=== PATIENT | female | born 1935 | race Caucasian/White ===

== ENCOUNTER 2017-11-30 16:43 | Inpatient (IN) | payer MEDICARE ==
[~2017-11-30] VITALS: Ht 152.4 cm; Wt 56.8 kg
--- NOTE | 2017-11-30 18:04 | PHYS DOC ---
Past History Past Medical History: CHF, Hypertension, Other (respiratory problem on home oxygen) Adult General Chief Complaint Chief Complaint: WEAKNESS/GENERALIZED HPI HPI 82-year-old female patient brought in by his from physician office for failure to thrive. Patient diagnosed with influenza B on November 01 at her home town in [place] and was admitted at Hospital. patient was not eating and drinking after her discharge from hospital since November 11 and was admitted at Hospital in November 17. Since Dr. Judge at this area brought her to hear on November and was seen by her primary care physician who recommended to admit at Hospital because of failure to thrive. Review of Systems Review of Systems Constitutional: Denies fever or chills, reports weakness [] Eyes: Denies change in visual acuity, redness, or eye pain [] HENT: Denies nasal congestion or sore throat [] Respiratory: Denies cough or shortness of breath [] Cardiovascular: No additional information not addressed in HPI [] GI: Denies abdominal pain, nausea, vomiting, bloody stools or diarrhea [] : Denies dysuria or hematuria [] Musculoskeletal: Denies back pain or joint pain [] Integument: Denies rash or skin lesions [] Neurologic: Denies headache, focal weakness or sensory changes [] Endocrine: Denies polyuria or polydipsia [] All other systems were reviewed and found to be within normal limits, except as documented in this note. Physical Exam Physical Exam Constitutional: Ill looking, alert and oriented HENT: Normocephalic, atraumatic, bilateral external ears normal, oropharynx dry , no oral exudates, nose normal. [] Eyes: PERRLA, EOMI, conjunctiva normal, no discharge. [] Neck: Normal range of motion, no tenderness, supple, no stridor. [] Cardiovascular:Heart rate regular rhythm, no murmur [] Lungs & Thorax: Bilateral breath sounds clear to auscultation [] Abdomen: Bowel sounds normal, soft, no tenderness, no masses, no pulsatile masses. [] Skin: Warm, dry, no erythema, no rash. [] Back: No tenderness, no CVA tenderness. [] Extremities: No tenderness, no cyanosis, no clubbing, ROM intact, no edema. [] Neurologic: Alert and oriented X 3, normal motor function, normal sensory function, no focal deficits noted. [] Psychologic: Affect normal, judgement normal, mood normal. [] EKG EKG [Cage interpreted by me. EKG at 1724 showed sinus rhythm at rate of 73. Prolonged WA interval, abnormal right superior axis deviation, right bundle branch block, poor R-wave progress in anteroseptal leads ] Radiology/Procedures Radiology/Procedures [] Course & Med Decision Making Course & Med Decision Making Pertinent Labs and Imaging studies are pending. Patient care transferred to Dr. Calvert at 1800 Patient signed out to me at 1800 shift change with failure to thrive, workup pending. Patient seen and examined, chart reviewed, and history primarily obtained from the patient's daughter who is at bedside. Patient was sent EMS from Dr. Horne's office for failure to thrive evaluation. Her daughter relays that she just brought the patient on November 28 to [facility] from [place]. Patient was diagnosed with influenza B on November 01 and prior to that diagnosis she lives at home with caregivers and ambulated using a walker. She was admitted to the hospital in [place] on November 01 and since her discharge on November 11 has not been able to tolerate anything solid by mouth or ambulate as before. She was in and out of the hospital and rehabilitation facilities since discharge until her daughter brought her to [place] by medical transport. Although the patient is ill- appearing in the emergency department she does deny any discomfort, dyspnea, or other complaint. 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), coronary artery disease, hypertension, hyperlipidemia, urinary incontinence (indwelling catheter 2 years ), hiatal hernia, chronic respiratory failure since pacemaker placement uses 3 L of O2 via nasal cannula Past surgical history: Mastectomy, rectal surgery, coronary stents, pacemaker, carpal tunnel release, pain pump (no use times one year) ED vitals: 98.7, 73, 22, 128/60, 98% on 3 L of O2 via nasal cannula The patient is pale and cachectic, very dry mucous membranes with scabbed lesions on her lips, coarse breath sounds bilaterally, stage I decubitus ulcer of the sacrum approximately 5 cm, no lower extremity edema, pale skin with poor turgor and bruising at the upper extremities consistent with chronic Coumadin anticoagulation EKG: Right bundle branch block 73 bpm no prior for comparison interpreted by me Chest AP: No effusions, right middle lobe infiltrate pacemaker interpreted by me Pertinent labs: White blood cells 17.3, hemoglobin 11.6, INR 2.4, potassium 2.7 , lactic acid 1.0, magnesium 1.7, troponin 0.077, BNP 1561, albumin 2.7, urinalysis pending I discussed findings with the patient and her daughter and the need for inpatient treatment. After thorough discussion the patient and her daughter indicate that they would like primarily symptomatic care no surgical intervention. The patient and her daughter are agreeable to inpatient admission , they state that in the past an air mattress has been required 2124: Patient discussed with control tower operator hospitalist Dr. Buitrago, he accepts inpatient ICU admission. Although the patient has history of CHF she does appear to be clinically dehydrated and no evidence of pulmonary edema. Normal saline with 40 mEq of potassium per liter initiated at 150 mL per hour, hydration with electrolyte balance and if indication of fluid overload we'll treat with Lasix. Zosyn intravenously, and attempt at by mouth potassium replacement. Impressions: Generalized weakness and failure to thrive Hypovolemia with hypokalemia History of CHF with elevated troponin Right middle lobe pneumonia Sacral decubitus Protein malnutrition Chronic respiratory failure Dragon Disclaimer Dragon Disclaimer This electronic medical record was generated, in whole or in part, using a voice recognition dictation system. Departure Departure: Impression: Primary Impression: Weakness Referrals: CLARIBEL HORNE MD (PCP) BENNY CHARLES MD Nov 30, 2017 18:04 DESHAWN CALVERT DO Dec 01, 2017 00:36
[2017-11-30 18:05] LABS: BASO # 0.1 x10^3/uL (0.0-0.2); BASO % 0 % (0-3); EOS # 0.3 x10^3/uL (0.0-0.7); EOS % 2 % (0-3); HEMATOCRIT 35.1 % (36.0-47.0); HEMOGLOBIN 11.6 g/dL (12.0-15.5); LYMPH % 6 % (24-48); MEAN CORPUSCULAR HEMOGLOBIN 28 pg (25-35); MEAN CORPUSCULAR HGB CONC 33 g/dL (31-37); MEAN CORPUSCULAR VOLUME 86 fL (79-100); MONO # 1.6 x10^3/uL (0.0-1.1); MONO % 9 % (0-9); NEUT # 14.2 x10^3uL (1.8-7.7); NEUT % 83 % (31-73); PLATELET COUNT 317 x10^3/uL (140-400); RED BLOOD COUNT 4.07 x10^6/uL (3.50-5.40); WHITE BLOOD COUNT 17.3 x10^3/uL (4.0-11.0)
[2017-11-30 18:32] LABS: ALBUMIN 2.7 g/dL (3.4-5.0); ALBUMIN/GLOBULIN RATIO 0.8 (1.0-1.7); CALCIUM 9.1 mg/dL (8.5-10.1); CREATININE 0.8 mg/dL (0.6-1.0); MAGNESIUM 1.7 mg/dL (1.8-2.4); TOTAL BILIRUBIN 0.9 mg/dL (0.2-1.0); TOTAL PROTEIN 6.3 g/dL (6.4-8.2)
[2017-11-30 18:34] LABS: POTASSIUM 2.7 mmol/L (3.5-5.1)
[2017-11-30 20:20] LABS: % BASOS 1 % (0-3); % LYMPHS 8 % (24-48); % MONOS 8 % (0-10); % MYELOS 3 % (0-0); % SEGS 79 % (35-66)
[2017-11-30 20:35] LABS: ANISOCYTOSIS MOD; POLYCHROMASIA PRESENT
[2017-11-30 20:37] LABS: MICROCYTOSIS PRESENT
[2017-11-30 20:41] LABS: OVALOCYTES FEW; TEAR DROP CELLS FEW
[2017-11-30] MEDS ORDERED: PIP/TAZO PER PHARMACY MC PRN (20:45)
[2017-11-30 20:46] LABS: PLT ESTIMATE ADEQUATE (ADEQUATE)
[2017-11-30 20:50] LABS: % ATYL 1 % (0-0)
[2017-11-30] MEDS: POTASSIUM CL 40MEQ IN 0.9%NACL 1,000 ML IV SCH (20:59)
[2017-11-30] MEDS ORDERED: POTASSIUM CHLORIDE 10 MEQ TABLET.ER. PO ONE (21:15)
[2017-11-30] MEDS ORDERED: PIPERACILLIN/TAZO IV Push 3.375 GM VIAL. IVP ONE (21:30)
[2017-11-30] MEDS ORDERED: ACETAMINOPHEN 325 MG TABLET PO PRN (21:45)
[2017-11-30] MEDS ORDERED: ONDANSETRON PF 4 MG/2 ML VIAL. IV PRN (21:45)
--- NOTE | 2017-11-30 22:39 | EKG ---
[address] [address] Test Date: 2017-11-30 Test Time: 17:24:55 Pat Name: NIKKY DE SOUZA Department: Room: ICU01 1 Gender: F Parts Designer: KING : [id number] Requested By: BENNY CHARLES Order Number: [id number] Reading MD: Ramez Mendieta MD Measurements Intervals Susan Rate: 73 P: 49 UT: 0 QRS: -124 QRSD: 166 T: 36 QT: 460 QTc: 511 Interpretive Statements SUSPECT V-PACED RHYTHM Electronically Signed On 12-08-2017 9:41:36 OFFAL WORKER by Ramez Mendieta MD
[2017-11-30 22:54] VITALS: BP 158/91
[2017-11-30 22:58] VITALS: BP 158/91
[2017-11-30] MEDS ORDERED: OMEP20CA9 PO (23:24)
[2017-11-30] MEDS ORDERED: TORS20TA2 PO (23:24)
[2017-11-30] MEDS ORDERED: POTA10CA PO (23:24)
[2017-11-30] MEDS ORDERED: DRON5CAP2 PO (23:24)
[2017-11-30] MEDS ORDERED: METH2.5T PO (23:24)
[2017-11-30] MEDS ORDERED: WARF2.5T83 PO (23:24)
[2017-11-30] MEDS ORDERED: METO10TA81 PO (23:24)
[2017-11-30] MEDS ORDERED: ATOR10TA60 PO (23:24)
[2017-11-30] MEDS ORDERED: LORA0.5T96 PO (23:24)
[2017-11-30] MEDS ORDERED: SPIR50TA2 PO (23:24)
[2017-11-30] MEDS ORDERED: METO25TA4 PO (23:24)
[2017-11-30] MEDS ORDERED: SERT50TA PO (23:24)
[2017-11-30] MEDS: POTASSIUM CHLORIDE 10MEQ 100 ML IV SCH (23:48)
[2017-11-30 23:49] VITALS: BP 153/80
[2017-12-01] VITALS (18 sets, daily range): BP systolic 127–177; BP diastolic 54–94
[2017-12-01] MEDS: MAGNESIUM SULFATE 2GM 50 ML IV SCH ×2 (01:00→02:10)
[2017-12-01] MEDS: POTASSIUM CHLORIDE 10MEQ 100 ML IV SCH ×3 (01:50→03:55)
[2017-12-01 01:55] LABS: INFLUENZA A PATIENT NEGATIVE (NEGATIVE); INFLUENZA B PATIENT NEGATIVE (NEGATIVE)
[2017-12-01 01:58] LABS: CLARITY,URINE CLOUDY; COLOR,URINE YELLOW; GLUCOSE,URINE NEG (NEG)
[2017-12-01 02:00] LABS: BACTERIA,URINE MANY /HPF (0-FEW); BILIRUBIN,URINE NEG (NEG); NITRITE,URINE NEG (NEG); RBC,URINE OCC /HPF (0-2); UROBILINOGEN,URINE 0.2 mg/dL (0.2 mg/dL); WBC,URINE >40 /HPF (0-4)
[2017-12-01 02:01] LABS: SQUAMOUS EPITHELIAL CELL,UR OCC /LPF; YEAST,URINE PRESENT /HPF
[2017-12-01 03:12] LABS: CALCIUM 8.9 mg/dL (8.5-10.1); CREATININE 0.8 mg/dL (0.6-1.0); POTASSIUM 4.2 mmol/L (3.5-5.1)
[2017-12-01] MEDS: POTASSIUM CL 40MEQ IN 0.9%NACL 1,000 ML IV SCH ×3 (04:00→23:22)
[2017-12-01] MEDS: IPRATRPIUM/ALBUTEROL 0.5/2.5MG 3 ML NEBU. NEB SCH ×4 (05:42→20:00)
--- NOTE | 2017-12-01 07:59 | RAD ---
Portable chest, 11/30/2017: History: Failure to thrive A right-sided transvenous pacemaker is in place with 2 leads extending into the heart. The heart is mildly enlarged. There is calcific plaquing and tortuosity of the thoracic aorta. The pulmonary vascularity is normal. No acute infiltrate is seen. There is no evidence of pleural fluid. There is an old healed rib fracture on the lower left. Extensive degenerative changes are present in the spine. Surgical clips are projected over the left axillary region. IMPRESSION: 1. Mild cardiomegaly and aortic atherosclerosis. 2. No acute pulmonary infiltrates.
[2017-12-01 08:44] LABS: BASO # 0.1 x10^3/uL (0.0-0.2); BASO % 1 % (0-3); EOS # 0.1 x10^3/uL (0.0-0.7); EOS % 1 % (0-3); HEMATOCRIT 33.7 % (36.0-47.0); HEMOGLOBIN 10.9 g/dL (12.0-15.5); LYMPH # 1.2 x10^3/uL (1.0-4.8); LYMPH % 8 % (24-48); MEAN CORPUSCULAR HEMOGLOBIN 29 pg (25-35); MEAN CORPUSCULAR HGB CONC 32 g/dL (31-37); MEAN CORPUSCULAR VOLUME 89 fL (79-100); MONO # 1.4 x10^3/uL (0.0-1.1); MONO % 10 % (0-9); NEUT # 11.9 x10^3uL (1.8-7.7); NEUT % 81 % (31-73); PLATELET COUNT 307 x10^3/uL (140-400); RED BLOOD COUNT 3.81 x10^6/uL (3.50-5.40); RED CELL DISTRIBUTION WIDTH 22.9 % (11.5-14.5); WHITE BLOOD COUNT 14.7 x10^3/uL (4.0-11.0)
[2017-12-01 08:48] LABS: CALCIUM 8.9 mg/dL (8.5-10.1); CREATININE 0.8 mg/dL (0.6-1.0); POTASSIUM 4.9 mmol/L (3.5-5.1)
[2017-12-01] MEDS: PIPERACILLIN/TAZO IV Push 3.375 GM VIAL. IVP SCH ×3 (09:19→17:31)
[2017-12-01] MEDS ORDERED: LORazepam 0.5 MG TABLET PO PRN (13:45)
--- NOTE | 2017-12-01 14:57 | HP ---
ADMIT DATE: 11/30/2017 HISTORY OF PRESENT ILLNESS: The patient is an 82-year-old female patient who moved here on 11/28/2017 from [place] to be with her daughter here. She apparently was living alone with a caregiver that fixes her meals, take her to her appointment and do shopping for groceries for her. She is able to feed herself. She is able to walk with a walker and use a walker in shower; however, she requires assistance with dressing and to have a shower and this has been going on for almost 2 years now. She was seen at her primary care physician's office for failure to thrive. She apparently has not been eating since 11/11/2017 and apparently was diagnosed with influenza B on 11/01/2017 while at home while in her town in [place], was admitted to the hospital and apparently was treated with Tamiflu. She has also what seemed to be like angioneurotic edema and was started with steroids and also was treated for urinary tract infection. From there she went to the rehab center and from the back to the hospital and on most recent discharge her daughter decided to bring her by medical transport that lasted about 12 hours and made it here on 11/28/2017. However, she continued to failed to thrive. She has been eating or drinking. She also has pressure sores on her coccyx and both heels and was seen in the Emergency Room and was admitted for further evaluation and treatment. The patient herself denied any pain. Did complain of some shortness of breath. PAST MEDICAL HISTORY: Significant for hypertension, hyperlipidemia, coronary artery disease, status post PTCA and stent deployment x 2. She has what seems to be sick sinus syndrome, status post permanent pacemaker placement, breast cancer, anal cancer, chronic kidney disease, congestive heart failure. She has wounds in her coccyx and bilateral deep tissue injuries in both heels. She is known to have rheumatoid arthritis as well as rheumatic fever during her childhood. PAST SURGICAL HISTORY: Significant for PCI with stent deployment x 2. She has a permanent pacemaker placement, left mastectomy with a radical axillary lymphadenectomy. She has anal canal tumor that was resected, was treated with chemotherapy and radiation therapy. She has also pain pump that is not active. ALLERGIES: She has no known drug allergies. MEDICATIONS: She is currently on the following medications: Atorvastatin calcium 10 mg at bedtime, dronabinol 5 mg twice a day, lorazepam 0.5 mg 3 times a day, methotrexate sodium she takes 7 tablets weekly, metoclopramide 10 mg half a tablet 4 times a day before meals and bedtime, metoprolol tartrate 25 mg twice a day, omeprazole 20 mg daily, potassium chloride 20 mEq once a day, sertraline 50 mg once a day, spironolactone 50 mg once a day, torsemide 20 mg she takes half a tablet daily and warfarin 2.5 mg daily. PHYSICAL EXAMINATION: GENERAL: On arrival to the Emergency Room, the patient was pale, cushingoid, but no jaundice, cyanosis, lymphadenopathy, no thyromegaly. No jugular venous distension. No lower limb edema. VITAL SIGNS: Her heart rate was 73, blood pressure 139/75, temperature was 98.7, respiratory rate 22, and oxygen saturation was 100% on room air. HEAD, EYES, EARS, NOSE, AND THROAT: Showed normocephalic, atraumatic. NECK: Supple. HEART: Showed normal first and second sounds. No gallop, rub or murmur. CHEST: Clear to auscultation. No crepitation or rhonchi. ABDOMEN: Distended, soft, nontender. NEUROLOGIC: She was awake, alert, responding appropriately. All her cranial nerves are intact. She moves extremities without difficulty, although she is mostly bedbound. LABORATORY DATA: On arrival to the Emergency Room she had lab work that showed a white cell count of 17,300, hemoglobin 11.6, hematocrit 35.1, MCV 86 and platelet count of 317,000 with normal manual differential. Her chemistry showed a serum sodium 134, potassium 2.7, chloride 91, bicarbonate 29, anion gap of 14, BUN 15, creatinine 0.8, estimated GFR was 69 mL per minute. Her glucose was 115, calcium was 9.1, and magnesium was 1.7. Total bilirubin, AST, ALT, alkaline phosphatase were normal. Her natriuretic peptide was 1561. Total protein 6.3, albumin 2.7 and lipase was 278. Her prothrombin time was 24.4, INR of 2.4. Urinalysis showed the urine was yellow, cloudy with a pH of 5.5, specific gravity of 1.020. There was large amount of protein, negative for glucose, trace of ketones, moderate amount of blood, negative for nitrite and moderate amount of leukocyte esterase with occasional rbc's, more than 40 wbc's, and many bacteria. Her influenza A and B were negative. IMAGING DATA: Her chest x-ray showed right-sided transvenous pacemaker is in place with 2 leads extending into the heart. The heart is mildly enlarged. There is calcific plaquing and tortuosity of the thoracic aorta, pulmonary vascularity is normal, no acute infiltrate is seen. There is no evidence of pleural fluid. There is an old healed rib fracture on the lower left, extensive degenerative changes are present in the spine. Surgical clips are projected over the left axillary region. ASSESSMENT AND PLAN: In summary, this is an 82-year-old female patient who was moved recently from [place] to be with her daughter, specifically she arrived here by medical transport over 12 hours on 11/28/2017. She has not been eating or drinking since 11/11/2017 and was admitted here for failure to thrive. She was extensively investigated. She was found to have a leukocytosis and probably urinary tract infection because of chronic indwelling Peters catheter. She is currently on piperacillin and tazobactam and IV fluid with potassium chloride as she has hypokalemia. Her blood and urine were sent for culture and sensitivity. The result of which is still obviously pending at the time of this dictation. She has a multitude of medical problems including hypertension, hyperlipidemia, coronary artery disease, status post percutaneous transluminal coronary angioplasty and stent deployment, sick sinus syndrome, status post permanent pacemaker; breast cancer, status post left mastectomy; anal cancer, status post surgical resection, chemo and radiation therapy; chronic kidney disease, congestive heart failure. She has also history of deep venous thrombosis for which she is on Coumadin and her INR was within therapeutic range. We will obviously continue with all her medication. Continue with IV fluid and IV antibiotic and decide on further management accordingly. CECILIA PAL MD DR: MISA/nicko JOB#: [id number] / [id number]
[2017-12-01] MEDS: DRONABINOL 2.5 MG CAPSULE PO SCH (16:39)
[2017-12-01] MEDS: WARFARIN 2.5 MG TABLET. PO SCH (16:39)
[2017-12-01] MEDS: ATORVASTATIN CALCIUM 10 MG TABLET. PO SCH (21:00)
[2017-12-01] MEDS: METOPROLOL TART IMMED RELEASE 25 MG TABLET PO SCH (21:00)
--- NOTE | 2017-12-01 21:33 | PDOC ---
Exam Note: Peyman Note: Please also refer to the separate dictated note~for this date of service dictated separately.~Patient seen individually. Discussed the patient with Nursing staff reviewed the chart.~Reviewed interim history and current functioning. Reviewed vital signs,~Labs/ Radiology~and current medications noted below. Continue current treatment with the changes noted in the dictated addendum note Assessment: Vital Signs: Vital Signs Date Time Temp Pulse Resp B/P (MAP) Pulse Ox O2 Delivery O2 Flow Rate FiO2 12/01/17 21:00 97.0 73 18 160/80 (106) 99 Nasal Cannula 3.0 I&O Intake and Output 12/01/17 07:00 Intake Total 1837 ml Output Total 650 ml Balance 1187 ml Intake Oral 270 ml IV Total 1567 ml Output Urine Total 650 ml Labs: Laboratory Tests Test 12/01/17 01:10 12/01/17 01:12 12/01/17 02:40 12/01/17 08:30 Influenza Type A (Rapid) Negative (NEGATIVE) Influenza Type B (Rapid) Negative (NEGATIVE) Urine Collection Type U cath Urine Color Yellow Urine Clarity Cloudy Urine pH 5.5 Urine Specific [place] 1.020 Urine Protein >100 mg/dl (NEG-TRACE) Urine Glucose (UA) Neg mg/dL (NEG) Urine Ketones (Stick) 15 mg/dL (NEG) Urine Blood Mod (NEG) Urine Nitrite Neg (NEG) Urine Bilirubin Neg (NEG) Urine Urobilinogen Dipstick 0.2 mg/dL (0.2 mg/dL) Urine Leukocyte Esterase Mod (NEG) Urine RBC Occ /HPF (0-2) Urine WBC >40 /HPF (0-4) Urine Squamous Epithelial Cells Occ /LPF Urine Bacteria Many /HPF (0-FEW) Urine Yeast Present /HPF Sodium Level 135 mmol/L (136-145) L 136 mmol/L (136-145) Potassium Level 4.2 mmol/L (3.5-5.1) 4.9 mmol/L (3.5-5.1) # Chloride Level 94 mmol/L (98-107) L 99 mmol/L (98-107) Carbon Dioxide Level 26 mmol/L (21-32) 22 mmol/L (21-32) Anion Gap 15 (6-14) H 15 (6-14) H Blood Urea Nitrogen 14 mg/dL (7-20) 15 mg/dL (7-20) Creatinine 0.8 mg/dL (0.6-1.0) 0.8 mg/dL (0.6-1.0) Estimated GFR (Cockcroft-Gault) 69.0 69.0 Glucose Level 87 mg/dL (70-99) 89 mg/dL (70-99) Calcium Level 8.9 mg/dL (8.5-10.1) 8.9 mg/dL (8.5-10.1) Troponin I Quantitative 0.070 ng/mL (0-0.055) H 0.058 ng/mL (0-0.055) H White Blood Count 14.7 x10^3/uL (4.0-11.0) H Red Blood Count 3.81 x10^6/uL (3.50-5.40) Hemoglobin 10.9 g/dL (12.0-15.5) L Hematocrit 33.7 % (36.0-47.0) L Mean Corpuscular Volume 89 fL (79-100) Mean Corpuscular Hemoglobin 29 pg (25-35) Mean Corpuscular Hemoglobin Concent 32 g/dL (31-37) Red Cell Distribution Width 22.9 % (11.5-14.5) H Platelet Count 307 x10^3/uL (140-400) Neutrophils (%) (Auto) 81 % (31-73) H Lymphocytes (%) (Auto) 8 % (24-48) L Monocytes (%) (Auto) 10 % (0-9) H Eosinophils (%) (Auto) 1 % (0-3) Basophils (%) (Auto) 1 % (0-3) Neutrophils # (Auto) 11.9 x10^3uL (1.8-7.7) H Lymphocytes # (Auto) 1.2 x10^3/uL (1.0-4.8) Monocytes # (Auto) 1.4 x10^3/uL (0.0-1.1) H Eosinophils # (Auto) 0.1 x10^3/uL (0.0-0.7) Basophils # (Auto) 0.1 x10^3/uL (0.0-0.2) Current Medications: Meds: Current Medications Piperacillin Sod/ Tazobactam Sod (Zosyn Per Pharmacy) 1 each PRN DAILY PRN MC SEE COMMENTS; Start 11/30/17 at 20:45 Potassium Chloride/Sodium Chloride 1,000 ml @ 75 mls/hr [id number] IV Last administered on 12/01/17at 10:49; Start 11/30/17 at 21:00 Potassium Chloride (Klor-Con) 30 meq 1X ONCE PO Last administered on 11/30/17at 21:43; Start 11/30/17 at 21:15; Stop 11/30/17 at 21:16; Status DC Piperacillin Sod/ Tazobactam Sod (Zosyn) 3.375 gm 1X ONCE IVP Last administered on 11/30/17at 21:58; Start 11/30/17 at 21:30; Stop 11/30/17 at 21:31; Status DC Ondansetron HCl (Zofran) 4 mg PRN Q4HRS PRN IV NAUSEA/VOMITING; Start 11/30/17 at 21:45; Stop 12/01/17 at 21:44 Acetaminophen (Tylenol) 650 mg PRN Q4HRS PRN PO FEVER; Start 11/30/17 at 21:45; Stop 12/01/17 at 21:44 Albuterol/ Ipratropium (Duoneb) 3 ml RTQID NEB Last administered on 12/01/17at 17 :05; Start 12/01/17 at 08:00; Stop 12/02/17 at 07:59 Magnesium Sulfate 50 ml @ 50 mls/hr Q1H IV Last administered on 12/01/17at 02:10 ; Start 11/30/17 at 23:30; Stop 12/01/17 at 01:30; Status DC Potassium Chloride 100 ml @ 50 mls/hr Q1H IV Last administered on 12/01/17at 02: 50; Start 12/01/17 at 00:00; Stop 12/01/17 at 03:59; Status DC Piperacillin Sod/ Tazobactam Sod (Zosyn) 3.375 gm Q6HRS IVP Last administered on 12/01/17at 17:31; Start 12/01/17 at 08:00 Fentanyl Citrate (Fentanyl 2ml Vial) 50 mcg PRN Q2HR PRN IV PAIN Last administered on 12/01/17at 10:49; Start 12/01/17 at 09:45 Atorvastatin Calcium (Lipitor) 10 mg QHS PO Last administered on 12/01/17at 21:00 ; Start 12/01/17 at 21:00 Lorazepam (Ativan) 0.5 mg PRN TID PRN PO ANXIETY / AGITATION; Start 12/01/17 at 13:45 Metoprolol Tartrate (Lopressor) 25 mg BID PO Last administered on 12/01/17at 21: 00; Start 12/01/17 at 21:00 Sertraline HCl (Zoloft) 50 mg DAILY PO ; Start 12/02/17 at 09:00 Warfarin Sodium (Coumadin) 2.5 mg DAILY16 PO Last administered on 12/01/17at 16: 39; Start 12/01/17 at 16:00 Dronabinol (Marinol) 5 mg BIDACLD PO Last administered on 12/01/17at 16:39; Start 12/01/17 at 16:30 Pantoprazole Sodium (Protonix) 40 mg DAILYAC PO ; Start 12/02/17 at 07:30 Potassium Chloride (Klor-Con) 10 meq DAILYWBKFT PO ; Start 12/02/17 at 08:00 Spironolactone (Aldactone) 50 mg DAILY PO ; Start 12/02/17 at 09:00 Warfarin Sodium (Coumadin Per Physician) 1 each PRN DAILY PRN MC SEE COMMENTS; Start 12/01/17 at 14:00 Active Scripts Active Reported Ativan (Lorazepam) 0.5 Mg Tablet 0.5 Mg PO PRN TID PRN Reglan (Metoclopramide Hcl) 10 Mg Tablet 0.5 Tab PO QIDACHS Dronabinol 5 Mg Capsule 5 Mg PO BID Methotrexate (Methotrexate Sodium) 2.5 Mg Tablet 7 Tab PO WEEKLY Metoprolol Tartrate 25 Mg Tablet 25 Mg PO BID Omeprazole 20 Mg Capsule.dr 1 Cap PO DAILY Zoloft (Sertraline Hcl) 50 Mg Tablet 1 Tab PO DAILY Coumadin (Warfarin Sodium) 2.5 Mg Tablet 2.5 Mg PO Potassium Chloride 10 Meq Capsule.er 20 Meq PO Spironolactone 50 Mg Tablet 50 Mg PO Torsemide 20 Mg Tablet 0.5 Tab PO DAILY Atorvastatin Calcium 10 Mg Tablet 10 Mg PO QHS I have reviewed the current psychotropics carefully including drug interactions. Risk benefit ratio favors no change other than as noted in my dictated progress note. Diagnosis: Problems: (1) Major depressive disorder, recurrent episode (2) Anxiety disorder RAUL WHITTAKER MD Dec 01, 2017 21:33
--- NOTE | 2017-12-01 23:09 | PN ---
DATE: 12/01/2017 SUBJECTIVE: The patient is resting slightly propped up in bed, in no apparent distress, awake, alert. In questioning her, she denied any complaints except that she is slightly short of breath. In particular, denied any pain, denied any chills, rigors or fever. The nursing staff said that she seemed to be at high risk for aspiration. PHYSICAL EXAMINATION: GENERAL: When I examined her this afternoon, she looked pale, somewhat cushingoid, but no jaundice, cyanosis or thyromegaly. No jugular venous distention. No limb edema. VITAL SIGNS: Her heart rate was 72, blood pressure 176/88, temperature was 97, respiratory rate was 22 and oxygen saturation was 100% on 3 liters of oxygen. HEAD, EYES, EARS, NOSE AND THROAT: Showed normocephalic, atraumatic. NECK: Supple. HEART: Showed normal first and second sounds. No gallop, rub or murmur. CHEST: Clear to auscultation. No crepitation or rhonchi. ABDOMEN: Distended, soft, nontender. No guarding or rigidity. No organomegaly. Hernial orifice intact. Bowel sounds normal. NEUROLOGIC: She is awake, alert, responding appropriately. Cranial nerves intact. She moves extremities without difficulty, although she is mostly bed bound. Her intake was 1800, output was 650. LABORATORY DATA: As of this morning, her serum sodium has normalized to 136, potassium 4.9, chloride 99, bicarbonate 22, anion gap of 15. BUN of 15, creatinine 0.8, estimated GFR was 69 mL per minute. Her glucose was 89, calcium was 8.9, lactic acid was 1. Her white cell count is 14,700, hemoglobin 11, hematocrit 33, MCV 89 and platelet count of 307,000. ASSESSMENT: This is an 82-year-old female patient with failure to thrive. The patient has not been eating or drinking since 11/11/2017 according to her daughter. She has what seems to be probably urine retention requiring chronic indwelling Peters catheter with recurrent urinary tract infection. She was diagnosed with urinary tract infection and was started on Zosyn IV 3.375 grams IV q. 8 hourly. She has marked hypokalemia. Her potassium on admission was only 2.7. She has also multiple other medical problems including hypertension, that seems to be reasonably controlled; hyperlipidemia, congestive heart failure, chronic kidney disease. PLAN: My plan is to cut down on IV fluid, continue with IV antibiotic. Monitor her PT/INR and also her lab work. Await the result of urine culture. We will also consult the speech and language pathologist to assess her swallowing evaluation. CECILIA PAL MD DR: MISA/nicko JOB#: [id number] / [id number]
[2017-12-02] VITALS (19 sets, daily range): BP systolic 115–189; BP diastolic 57–96
[2017-12-02] MEDS: PIPERACILLIN/TAZO IV Push 3.375 GM VIAL. IVP SCH ×4 (00:33→18:45)
--- NOTE | 2017-12-02 03:36 | CONS ---
DATE OF CONSULTATION: 12/01/2017 PSYCHIATRIC CONSULTATION This note covers elements not covered in my initial note of 12/01/2017. IDENTIFYING DATA: The patient is an 82-year-old female, seen in ICU bed 1 at [facility] for psychiatric consult requested by Dr. Buitrago on account of worsening symptoms of depression and failure to thrive. The patient seen individually, discussed with nursing staff, met with the patient's daughter to gather background history, reviewed the chart. CHIEF COMPLAINT: "There is nothing to live for." HISTORY OF PRESENT ILLNESS: The patient has a history of worsening symptoms of depression, feeling hopeless, helpless, worthless. She has been refusing to eat because she "just wants to ." The patient is depressed, was living by herself with round the clock caregivers in [place], but the daughter who lives in [place] went to [place] and brought her back here so that she could be around the rest of the family. She just arrived in [place] 3 days back and has refused to eat and drink and has been extremely hopeless, helpless, worthless, refusing to talk, interact even the grandchildren and great grandchildren. Cognitively, she remains intact, is somewhat paranoid. She has passive suicidal ideation as noted. No active suicidal ideation. PAST PSYCHIATRIC HISTORY: She has been treated by her primary care physician in [place] on Zoloft. PAST MEDICAL HISTORY: She was recently diagnosed with influenza B on 11/01/2017 while at her home in [place], admitted to the hospital, treated on Tamiflu. She had also a history of angioedema, was treated on steroids and recent UTI. She has also had pressure sores on her coccyx and both heels, history of hypertension, hyperlipidemia, coronary artery disease status post PTCA stent deployment x 2, sick sinus syndrome, permanent pacemaker, breast cancer, anal cancer, chronic kidney disease, CHF and wounds in the coccyx, bilateral deep tissue injuries in both heels, rheumatoid arthritis, rheumatic fever during childhood. PAST SURGICAL HISTORY: Significant for PCI with stent deployment x 2, permanent pacemaker, left mastectomy, radical axillary lymphadenectomy, anal canal tumor resected, treated with chemotherapy, radiation, also has pain pump that is not active. ALLERGIES: Negative. CURRENT PSYCHOTROPICS: Ativan 0.5 mg 3 times a day, dronabinol 5 mg twice a day, Zoloft 50 mg a day. FAMILY HISTORY: Noncontributory. SOCIAL HISTORY: No alcohol or drug abuse history. 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 No alcohol or drug abuse history. MENTAL STATUS EXAMINATION: The patient is reasonably oriented. She is quite withdrawn, depressed, hopeless and worthless. Speech moderate to marked latency, often responses monosyllabic. Abstraction fair, computation impaired, language function intact, attention span short. Mood and affect depressed. LABORATORY DATA: Reviewed. 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 Rest diagnoses as above. PLAN: I have carefully reviewed the patient's current psychotropics. We will go ahead and change the Zoloft to Cymbalta 30 mg a day, may need to increase this gradually. We will augment with Zyprexa 2.5 mg p.o. at bedtime, which should also help stimulate her appetite somewhat. We may consider [facility] when she is medically stable prior to discharge back home to outpatient treatment at the [facility]. Dr. Buitrago, thank you for the opportunity to participate in your patient's care. We will follow with you. RAUL WHITTAKER MD DR: NITIN/nicko JOB#: [id number] / [id number]
[2017-12-02 06:46] LABS: HEMATOCRIT 30.7 % (36.0-47.0); HEMOGLOBIN 9.8 g/dL (12.0-15.5); RED BLOOD COUNT 3.44 x10^6/uL (3.50-5.40); RED CELL DISTRIBUTION WIDTH 22.4 % (11.5-14.5); WHITE BLOOD COUNT 11.4 x10^3/uL (4.0-11.0)
[2017-12-02] MEDS ORDERED: SERTRALINE 50 MG TABLET. PO SCH (09:00)
[2017-12-02] MEDS: DULoxetine HCL 30 MG CAPSULE.DR PO SCH (09:36)
[2017-12-02] MEDS: LACTOBACILLUS RHAMNOSUS GG 1 CAPSULE. PO SCH ×2 (09:36→21:05)
[2017-12-02] MEDS: PANTOPRAZOLE 40 MG TABLET. PO SCH (09:37)
[2017-12-02] MEDS: POTASSIUM CHLORIDE 10 MEQ TABLET.ER. PO SCH (09:37)
[2017-12-02] MEDS: SPIRONOLACTONE 25 MG TABLET PO SCH (09:38)
[2017-12-02] MEDS: METOPROLOL TART IMMED RELEASE 25 MG TABLET PO SCH ×2 (09:39→21:07)
[2017-12-02 10:36] LABS: ALBUMIN 2.5 g/dL (3.4-5.0); ALBUMIN/GLOBULIN RATIO 0.7 (1.0-1.7); CREATININE 0.7 mg/dL (0.6-1.0); GFR 80.5; POTASSIUM 5.2 mmol/L (3.5-5.1); TOTAL BILIRUBIN 0.6 mg/dL (0.2-1.0); TOTAL PROTEIN 5.9 g/dL (6.4-8.2)
[2017-12-02] MEDS: hydrALAZINE 25 MG TABLET PO SCH ×3 (11:23→21:07)
[2017-12-02] MEDS: IV DEXTROSE 5 %-0.45 % NACL 1,000 ML IV SCH (11:23)
[2017-12-02] MEDS: DRONABINOL 2.5 MG CAPSULE PO SCH ×2 (11:30→16:30)
--- NOTE | 2017-12-02 18:27 | PDOC ---
Exam Note: Peyman Note: Please also refer to the separate dictated note~for this date of service dictated separately.~Patient seen individually. Discussed the patient with Nursing staff reviewed the chart.~Reviewed interim history and current functioning. Reviewed vital signs,~Labs/ Radiology~and current medications noted below. Continue current treatment with the changes noted in the dictated addendum note Assessment: Vital Signs: Vital Signs Date Time Temp Pulse Resp B/P (MAP) Pulse Ox O2 Delivery O2 Flow Rate FiO2 12/02/17 17:19 74 28 139/84 (102) Nasal Cannula 3.0 12/02/17 15:19 99 12/02/17 11:32 97.8 I&O Intake and Output 12/02/17 07:00 Intake Total 852 ml Output Total 600 ml Balance 252 ml Intake Oral 410 ml IV Total 442 ml Output Urine Total 600 ml Labs: Laboratory Tests Test 12/02/17 05:55 12/02/17 09:56 White Blood Count 11.4 x10^3/uL (4.0-11.0) H Red Blood Count 3.44 x10^6/uL (3.50-5.40) L Hemoglobin 9.8 g/dL (12.0-15.5) L Hematocrit 30.7 % (36.0-47.0) L Mean Corpuscular Volume 89 fL (79-100) Mean Corpuscular Hemoglobin 29 pg (25-35) Mean Corpuscular Hemoglobin Concent 32 g/dL (31-37) Red Cell Distribution Width 22.4 % (11.5-14.5) H Platelet Count 290 x10^3/uL (140-400) Prothrombin Time 33.3 SEC (9.4-11.4) H Prothrombin Time INR 3.3 (0.9-1.1) H Sodium Level 142 mmol/L (136-145) Potassium Level 5.2 mmol/L (3.5-5.1) H Chloride Level 108 mmol/L (98-107) H Carbon Dioxide Level 23 mmol/L (21-32) Anion Gap 11 (6-14) Blood Urea Nitrogen 8 mg/dL (7-20) Creatinine 0.7 mg/dL (0.6-1.0) Estimated GFR (Cockcroft-Gault) 80.5 BUN/Creatinine Ratio 11 (6-20) Glucose Level 89 mg/dL (70-99) Calcium Level 9.0 mg/dL (8.5-10.1) Total Bilirubin 0.6 mg/dL (0.2-1.0) Aspartate Amino Transferase (AST) 22 U/L (15-37) Alanine Aminotransferase (ALT) 17 U/L (14-59) Alkaline Phosphatase 56 U/L (46-116) Total Protein 5.9 g/dL (6.4-8.2) L Albumin 2.5 g/dL (3.4-5.0) L Albumin/Globulin Ratio 0.7 (1.0-1.7) L Current Medications: Meds: Current Medications Piperacillin Sod/ Tazobactam Sod (Zosyn Per Pharmacy) 1 each PRN DAILY PRN [facility] SEE COMMENTS; Start 11/30/17 at 20:45 Potassium Chloride/Sodium Chloride 1,000 ml @ 75 mls/hr [id number] IV Last administered on 12/01/17at 23:22; Start 11/30/17 at 21:00; Stop 12/02/17 at 11:16; Status DC Potassium Chloride (Klor-Con) 30 meq 1X ONCE PO Last administered on 11/30/17at 21:43; Start 11/30/17 at 21:15; Stop 11/30/17 at 21:16; Status DC Piperacillin Sod/ Tazobactam Sod (Zosyn) 3.375 gm 1X ONCE IVP Last administered on 11/30/17at 21:58; Start 11/30/17 at 21:30; Stop 11/30/17 at 21:31; Status DC Ondansetron HCl (Zofran) 4 mg PRN Q4HRS PRN IV NAUSEA/VOMITING; Start 11/30/17 at 21:45; Stop 12/01/17 at 21:45; Status DC Acetaminophen (Tylenol) 650 mg PRN Q4HRS PRN PO FEVER; Start 11/30/17 at 21:45; Stop 12/01/17 at 21:45; Status DC Albuterol/ Ipratropium (Duoneb) 3 ml RTQID NEB Last administered on 12/01/17at 17 :05; Start 12/01/17 at 08:00; Stop 12/02/17 at 07:59; Status DC Magnesium Sulfate 50 ml @ 50 mls/hr Q1H IV Last administered on 12/01/17 02:10 ; Start 11/30/17 at 23:30; Stop 12/01/17 at 01:30; Status DC Potassium Chloride 100 ml @ 50 mls/hr Q1H IV Last administered on 12/01/17at 02: 50; Start 12/01/17 at 00:00; Stop 12/01/17 at 03:59; Status DC Piperacillin Sod/ Tazobactam Sod (Zosyn) 3.375 gm Q6HRS IVP Last administered on 12/02/17 11:20; Start 12/01/17 at 08:00 Fentanyl Citrate (Fentanyl 2ml Vial) 50 mcg PRN Q2HR PRN IV PAIN Last administered on 12/01/17 10:49; Start 12/01/17 at 09:45 Atorvastatin Calcium (Lipitor) 10 mg QHS PO Last administered on 12/01/17 21:00 ; Start 12/01/17 at 21:00 Lorazepam (Ativan) 0.5 mg PRN TID PRN PO ANXIETY / AGITATION; Start 12/01/17 at 13:45 Metoprolol Tartrate (Lopressor) 25 mg BID PO Last administered on 12/02/17 09: 39; Start 12/01/17 at 21:00 Sertraline HCl (Zoloft) 50 mg DAILY PO ; Start 12/02/17 at 09:00; Stop 12/02/17 at 09:00; Status DC Warfarin Sodium (Coumadin) 2.5 mg DAILY16 PO Last administered on 12/01/17 16: 39; Start 12/01/17 at 16:00 Dronabinol (Marinol) 5 mg BIDACLD PO Last administered on 12/01/17 16:39; Start 12/01/17 at 16:30 Pantoprazole Sodium (Protonix) 40 mg DAILYAC PO Last administered on 12/02/17 09:37; Start 12/02/17 at 07:30 Potassium Chloride (Klor-Con) 10 meq [id number] PO Last administered on 09:37; Start 12/02/17 at 08:00 Spironolactone (Aldactone) 50 mg DAILY PO Last administered on 12/02/17 09:38; Start 12/02/17 at 09:00 Warfarin Sodium (Coumadin Per Physician) 1 each PRN DAILY PRN MC SEE COMMENTS; Start 12/01/17 at 14:00 Olanzapine (ZyPREXA) 2.5 mg HS PO ; Start 12/02/17 at 21:00 Duloxetine HCl (Cymbalta) 30 mg DAILY PO Last administered on 12/02/17at 09:36; Start 12/02/17 at 09:00 Lactobacillus Rhamnosus (Culturelle) 1 cap BID PO Last administered on at 09:36; Start 12/02/17 at 09:00 Hydralazine HCl (Apresoline) 25 mg TID PO Last administered on 12/02/17at 11:23; Start 12/02/17 at 10:30 Dextrose/Sodium Chloride 1,000 ml @ 75 mls/hr [id number] IV Last administered on 12/02/17at 11:23; Start 12/02/17 at 11:15 Active Scripts Active Reported Ativan (Lorazepam) 0.5 Mg Tablet 0.5 Mg PO PRN TID PRN Reglan (Metoclopramide Hcl) 10 Mg Tablet 0.5 Tab PO QIDACHS Dronabinol 5 Mg Capsule 5 Mg PO BID Methotrexate (Methotrexate Sodium) 2.5 Mg Tablet 7 Tab PO WEEKLY Metoprolol Tartrate 25 Mg Tablet 25 Mg PO BID Omeprazole 20 Mg Capsule.dr 1 Cap PO DAILY Zoloft (Sertraline Hcl) 50 Mg Tablet 1 Tab PO DAILY Coumadin (Warfarin Sodium) 2.5 Mg Tablet 2.5 Mg PO Potassium Chloride 10 Meq Capsule.er 20 Meq PO Spironolactone 50 Mg Tablet 50 Mg PO Torsemide 20 Mg Tablet 0.5 Tab PO DAILY Atorvastatin Calcium 10 Mg Tablet 10 Mg PO QHS I have reviewed the current psychotropics carefully including drug interactions. Risk benefit ratio favors no change other than as noted in my dictated progress note. Diagnosis: Problems: (1) Major depressive disorder, recurrent episode (2) Anxiety disorder (3) Weakness RAUL WHITTAKER MD Dec 02, 2017 18:27
[2017-12-02] MEDS: WARFARIN 2.5 MG TABLET. PO SCH (18:45)
[2017-12-02] MEDS ORDERED: OLANZapine 2.5 MG TABLET PO SCH (21:00)
[2017-12-02] MEDS: ATORVASTATIN CALCIUM 10 MG TABLET. PO SCH (21:05)
[2017-12-03] MEDS: IV DEXTROSE 5 %-0.45 % NACL 1,000 ML IV SCH (00:08)
[2017-12-03] MEDS: PIPERACILLIN/TAZO IV Push 3.375 GM VIAL. IVP SCH ×3 (00:08→12:00)
[2017-12-03 01:19] VITALS: BP 135/56
[2017-12-03 02:19] VITALS: BP 125/59
[2017-12-03 03:19] VITALS: BP 138/86
[2017-12-03 06:19] VITALS: BP_SYST 135; BP_SYST 143; BP_DIAS 56; BP_DIAS 71
[2017-12-03 06:24] LABS: CALCIUM 8.5 mg/dL (8.5-10.1); CREATININE 0.7 mg/dL (0.6-1.0); GFR 80.5; POTASSIUM 3.6 mmol/L (3.5-5.1)
[2017-12-03] MEDS: PANTOPRAZOLE 40 MG TABLET. PO SCH ×2 (07:30→08:23)
[2017-12-03] MEDS: POTASSIUM CHLORIDE 10 MEQ TABLET.ER. PO SCH ×2 (08:00→08:23)
[2017-12-03] MEDS: LACTOBACILLUS RHAMNOSUS GG 1 CAPSULE. PO SCH ×2 (08:23→08:35)
[2017-12-03] MEDS: DULoxetine HCL 30 MG CAPSULE.DR PO SCH ×2 (08:23→08:36)
[2017-12-03] MEDS: hydrALAZINE 25 MG TABLET PO SCH ×2 (08:25→08:35)
[2017-12-03] MEDS: METOPROLOL TART IMMED RELEASE 25 MG TABLET PO SCH ×2 (08:25→08:36)
[2017-12-03] MEDS: SPIRONOLACTONE 25 MG TABLET PO SCH ×2 (08:26→08:35)
--- NOTE | 2017-12-03 08:28 | PN ---
DATE: 12/02/2017 SUBJECTIVE: The patient is resting, slightly propped up in bed, in no apparent respiratory distress. On questioning her, denied any complaint. Apparently, the patient made up her mind that she wants to go on hospice and does not to continue with any aggressive treatment and she is scheduled to be seen by the hospice team this afternoon and the plan for her to be discharged tomorrow home with hospice. PHYSICAL EXAMINATION: GENERAL: When I examined her this afternoon, she looked pale, but no jaundice, cyanosis or thyromegaly. No jugular venous distension. No lower limb edema. VITAL SIGNS: Her heart rate was 75, blood pressure 112/89, temperature was 97.8, respiratory rate was 16 and oxygen saturation was 99% on 3 liters of oxygen by nasal cannula. HEAD, EYES,EARS, NOSE AND THROAT: Normocephalic, atraumatic. NECK: Supple. HEART: Showed normal first and second heart sounds with no gallop, rub or murmur. CHEST: Clear to auscultation. No crepitation or rhonchi. ABDOMEN: Distended, soft, nontender. No guarding or rigidity. No organomegaly. Hernial orifice intact. Bowel sounds normal. NEUROLOGIC: She is awake, alert, responding appropriately. Cranial nerves intact. She moves extremities without difficulty. She is mostly bedbound. Her intake over the last 24 hours was 850, output 600. LABORATORY DATA: Her lab work this morning showed a white cell count of 11,400, hemoglobin 9.8, hematocrit 30.7, MCV 89 and platelet count 290,000. Her chemistry showed a serum sodium 142, potassium 5.2, chloride 108, bicarbonate 23, anion gap of 11, BUN 8, creatinine 0.7, estimated GFR was 80 mL per minute. Her glucose was 89, calcium was 9. Total bilirubin, AST, ALT, alkaline phosphatase were normal. Total protein was 5.9, albumin 2.5. Prothrombin time was 33.3, INR of 3.3. Her urine culture has grown more than 100,000 colony forming units per mL of yeast and her blood culture is negative so far. ASSESSMENT: 1. An 82-year-old female patient with failure to thrive, severe. 2. Urinary tract infection secondary to indwelling Peters catheter. 3. Urinary retention requiring indwelling Peters catheter. 4. Hypokalemia, resolved. In fact, her potassium is high this morning. She has multiple other medical problems including A.) Hypertension. B.) Hyperlipidemia. C.) Congestive heart failure. D.) Chronic kidney disease. E.) Rheumatoid arthritis. F.) Rheumatic fever. I.) Multiple wounds. PLAN: To continue with the IV fluid, IV antibiotic, I will add also IV Diflucan for her yeast infection. So far, apparently the patient has made up her mind to go home with hospice. I have a lengthy discussion with her and her daughter and once they finalize the decision, we will assist them whichever way they wanted to go. CECILIA PAL MD DR: MISA/nicko JOB#: [id number] / [id number]
[2017-12-03] MEDS: DRONABINOL 2.5 MG CAPSULE PO SCH (11:26)
--- NOTE | 2017-12-03 20:57 | PN ---
DATE: 12/02/2017 This note covers elements not covered in the initial note, 12/02/2016. SUBJECTIVE: I discussed with nursing staff earlier this morning about the possibility of transition to [facility] when she is medically stable. I met with the patient evening of 12/02/2017, and discussed with the nursing staff evening of 12/02/2017. Reviewed the chart. Overall, per nursing report, the patient remains depressed, withdrawn. Appetite remains poor. She wants to be on hospice care rather than have very active medical interventions to sustain her. REVIEW OF SYSTEMS: Positive for tiredness. No CV, , pulmonary, eye system symptoms on review. Appetite poor. MENTAL STATUS EXAM: Oriented to herself and situation. Speech fluent, rate and rhythm, often responses monosyllabic, coherent, abstraction fair, computation impaired, language function intact. Mood and affect still depressed. IMPRESSION: Major depressive disorder with possible psychotic features. PLAN: Continue psychotropics as mentioned in my initial note, may need to adjust Cymbalta in due course. Continue Zyprexa at current dosage. MAN Katie WHITTAKER MD DR: NITIN/nicko JOB#: [id number] / [id number]
--- NOTE | 2017-12-04 02:38 | DS ---
DATE OF DISCHARGE: 12/03/2017 HISTORY OF PRESENT ILLNESS: This is an 82-year-old female patient who moved here on 11/28/2017 for [place] to be with her daughter. She apparently was living alone with a caregiver who fixed her meals, take her to her appointment and do shopping for groceries and for her. She is able to feed herself. She is able to walk with a walker and use a walker in the shower; however, she requires assistance with dressing, to have a shower and this has been going on for almost 2 years now. She apparently has a multitude of medical problems including rheumatoid arthritis, rheumatic fever. She has chronic kidney disease, who was admitted to be treated for urinary tract infection and basically the patient was noted also to have dysphagia and we did consult the speech therapist to evaluate her and the patient was basically stated that she really want to and we had a lengthy discussion with her together with her daughter and apparently and she made up her mind that she wants to go on hospice and she was evaluated by the hospice team and the decision was made to discharge her home with hospice. PHYSICAL EXAMINATION: GENERAL: On examining her this morning, she looked pale, but no jaundice, cyanosis, or thyromegaly. No jugular venous distention. No limb edema. VITAL SIGNS: Her heart rate was 73, blood pressure 143/56, temperature was 98.3, respiratory rate 20, and oxygen saturation was 99% on 2 liters of oxygen by nasal cannula. HEAD, EARS, NOSE AND THROAT: Normocephalic, atraumatic. NECK: Supple. HEART: Showed normal first and second heart sounds with no gallop, rub or murmur. CHEST: Clear to auscultation. No crepitation or rhonchi. ABDOMEN: Distended, soft, nontender. She has an indwelling Peters catheter. NEUROLOGIC: She is awake, alert, responding appropriately. All her cranial nerves are intact. She moves her upper extremities to much great extent then lower extremities. She has multiple wounds in her coccyx and both heels. LABORATORY DATA: This morning showed a serum sodium 141, potassium 3.6, chloride 108, bicarbonate 24, anion gap of 9, BUN 5, creatinine 0.7, estimated GFR was 80 mL per minute. Her glucose 129, calcium was 8.5. Her white cell count was 11,400, hemoglobin 9.8, hematocrit 30.7, MCV 89 and platelet count 290,000. DISCHARGE MEDICATIONS: The patient was discharged to continue all her medication and also Roxanol and Ativan. FINAL DISCHARGE DIAGNOSES: This patient has multiple medical problems including hypertension, hyperlipidemia, congestive heart failure, chronic kidney disease, rheumatoid arthritis, rheumatic fever, multiple wounds. Urinary tract infection secondary to indwelling Peters catheter, urinary retention requiring indwelling Peters catheter and urinary tract infection with the growth of more than 100,000 colony forming units per mL of gram-negative yeast . CECILIA PAL MD DR: MISA/nicko JOB#: [id number] / [id number]
== END 2017-12-03 13:35 | disposition hospice, home (50) | DRG 871 ==
LOC: ER 16:43 → ICU 21:38
PROVIDERS: ADMIT Internal Medicine; ATTEND Internal Medicine
DX: A41.9 Sepsis, unspecified organism (principal); E43 Unspecified severe protein-calorie malnutrition; L89.109 Pressure ulcer of unspecified part of back, unspecified stage; J96.10 Chronic respiratory failure, unspecified whether with hypoxia or hypercapnia; I13.0 Hypertensive heart and chronic kidney disease with heart failure and stage 1 through stage 4 chronic kidney disease, or unspecified chronic kidney disease; F33.3 Major depressive disorder, recurrent, severe with psychotic symptoms; L89.151 Pressure ulcer of sacral region, stage 1; I50.9 Heart failure, unspecified; R13.10 Dysphagia, unspecified; T83.511A Infection and inflammatory reaction due to indwelling urethral catheter, initial encounter; B37.49 Other urogenital candidiasis; R45.851 Suicidal ideations; R64 Cachexia; E78.5 Hyperlipidemia, unspecified; E87.6 Hypokalemia; F41.9 Anxiety disorder, unspecified; I00 Rheumatic fever without heart involvement; L89.619 Pressure ulcer of right heel, unspecified stage; L89.629 Pressure ulcer of left heel, unspecified stage; I25.10 Atherosclerotic heart disease of native coronary artery without angina pectoris; M06.9 Rheumatoid arthritis, unspecified; N18.9 Chronic kidney disease, unspecified; R62.7 Adult failure to thrive; G89.29 Other chronic pain; M19.90 Unspecified osteoarthritis, unspecified site; Z60.2 Problems related to living alone; Y84.6 Urinary catheterization as the cause of abnormal reaction of the patient, or of later complication, without mention of misadventure at the time of the procedure; Z51.5 Encounter for palliative care; Z79.01 Long term (current) use of anticoagulants; Z85.048 Personal history of other malignant neoplasm of rectum, rectosigmoid junction, and anus; Z85.3 Personal history of malignant neoplasm of breast; Z86.718 Personal history of other venous thrombosis and embolism; Z87.440 Personal history of urinary (tract) infections; Z90.12 Acquired absence of left breast and nipple; Z92.21 Personal history of antineoplastic chemotherapy; Z95.0 Presence of cardiac pacemaker; Z95.5 Presence of coronary angioplasty implant and graft; Z99.81 Dependence on supplemental oxygen; Z92.3 Personal history of irradiation; Z87.81 Personal history of (healed) traumatic fracture; Z74.01 Bed confinement status; Z68.24 Body mass index [BMI] 24.0-24.9, adult
CPT/HCPCS: 36415; 71045; 80048; 80053; 81001; 82550; 83605; 83690; 83735; 83880; 84484; 85007; 85025; 85027; 85610; 87040; 87086; 87641; 87804; 93005; 94640; 96374; J2543; J3010; J3475; J3480; J7620; Q0167; 92610; 99285-25

== ENCOUNTER 2017-12-13 09:51 | Emergency (ER) | payer MEDICARE ==
[~2017-12-13 09:51] MED LIST: ATOR10TA60 PO; DRON5CAP2 PO; LORA0.5T96 PO; METH2.5T PO; METO10TA81 PO; METO25TA4 PO; OMEP20CA9 PO; POTA10CA PO; SERT50TA PO; SPIR50TA2 PO; TORS20TA2 PO; WARF2.5T83 PO
--- NOTE | 2017-12-13 11:07 | PHYS DOC ---
General Chief Complaint: URINE CATHETER PROBLEM Stated Complaint: URINE CATHETER ISSUE Time Seen by MD: 09:59 Source: patient, family Exam Limitations: no limitations Problems: History of Present Illness Initial Comments Patient is an 82-year-old female brought to the ED hospice status for bleeding around her urinary catheter. Patient has been incontinent for the past 2 years and has used an indwelling catheter. Yesterday patient noticed a little bit of bleeding, the hospice nurse changed out the catheter and today the patient has had bright red blood per her urinary catheter family reports 400 mL collected at home. The patient does take Coumadin she has multiple medical issues. Her daughter relays that she just brought the patient on November 28 to [facility] from [place]. Patient was diagnosed with influenza B on November 01 and prior to that diagnosis she lives at home with caregivers and ambulated using a walker. She was admitted to the hospital in [place] on November 01 and since her discharge on November 11 has not been able to tolerate anything solid by mouth or ambulate as before. She was in and out of the hospital and rehabilitation facilities since discharge until her daughter brought her to [place] by medical transport. Although the patient is ill- appearing in the emergency department she does deny any discomfort, dyspnea, or other complaint. ED vitals: 97.6, 73, 24, 157/82, 100% room air PAST MEDICAL HISTORY: Significant for hypertension, hyperlipidemia, coronary artery disease, status post PTCA and stent deployment x 2. She has what seems to be sick sinus syndrome, status post permanent pacemaker placement, breast cancer/anal cancer each treated with resection, chemotherapy, and radiation therapy, chronic kidney disease, congestive heart failure. She has wounds in her coccyx and bilateral deep tissue injuries in both heels. She is known to have rheumatoid arthritis as well as rheumatic fever during her childhood. PAST SURGICAL HISTORY: Significant for PCI with stent deployment x 2. She has a permanent pacemaker placement, left mastectomy with a radical axillary lymphadenectomy. She has anal canal tumor that was resected, was treated with chemotherapy and radiation therapy. She has also pain pump that is not active. 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 Timing/Duration: 24 hours Severity: severe Modifying Factors: improves with other Associated Symptoms: other Allergies: Coded Allergies: I S O L A T I O N *CONTACT* (Verified Allergy, Unknown, 12/02/17) +MRSA nares 12/01/17 NKMA (Verified Allergy, Unknown, 12/02/17) Past Medical History Medical History: other (Arthritis, chronic pain, arrhythmia, anal and breast cancer (treated with surgical excision and radiation), coronary artery disease, hypertension, hyperlipidemia, urinary incontinence (indwelling catheter 2 years ), hiatal hernia, chronic respiratory failure since pacemaker placement uses 3 L of O2 via nasal cannula) Surgical History: other (Mastectomy, rectal surgery, coronary stents, pacemaker , carpal tunnel release, pain pump (no use times one year)) Social History Smoker: non-smoker Alcohol: none Drugs: none Review of Systems Constitutional: denies chills, denies diaphoresis, denies fever, malaise Respiratory: denies cough, denies shortness of breath, denies wheezing Cardiovascular: denies chest pain, denies palpitations, denies syncope Gastrointestinal: see HPI Genitourinary: see HPI Psychiatric/Neurological: denies headache, denies seizure Hematologic/Lymphatic: see HPI Physical Exam General Appearance: WD/WN, no apparent distress Ear, Nose, Throat: hearing grossly normal, normal ENT inspection (scabbed lesions at lips greatly improved from last ED visit), normal pharynx Neck: non-tender, supple Respiratory: chest non-tender, normal breath sounds, no respiratory distress Cardiovascular: normal peripheral pulses, regular rate, rhythm Gastrointestinal: non tender, soft Extremities: non-tender, normal inspection Neurologic/Psychiatric: commission for the blind director II-XII nml as tested, no motor/sensory deficits, alert, oriented x 3, depressed affect Skin: pallor (poor turgor) Orders, Labs, Meds EKG: Ventricularly paced 72 bpm, nonspecific T contour abnormality is no ST segment elevation interpreted by me PATIENT: NIKKY DE SOUZA ACCOUNT: [id number] : 1935 LOCATION: ER AGE: 82 SEX: F EXAM STATUS: REG ER ORD. PHYSICIAN: DESHAWN CALVERT DO REASON: cough PROCEDURE: ACUTE ABDOMEN SERIES Abdominal series including frontal chest radiograph and 4 views of the abdomen 12/13/2017 Indication: Abdominal pain. Hematuria. Comparison study: Chest radiograph November 30, 2017 Discussion: No pneumothorax or pleural effusion is identified. A right sided pacemaking/ICD device noted. Very mild linear opacity left mid lung may represent infiltrate or atelectasis. No acute osseous changes are seen. No gross pneumoperitoneum is identified. The bowel gas pattern is nonobstructive. Dextroscoliosis and severe degenerative changes of the lumbar spine are seen. A right lower quadrant pain medication delivery system is noted. Extensive atherosclerotic vascular disease is noted. Impression: 1. Mild basilar atelectasis or infiltrate in the left midlung 2. Nonobstructive bowel gas pattern DICTATED AND SIGNED BY: EMIL SCHAEFER MD DATE: 12/13/17 1102 CC: CLARIBEL DIEGO MD; DESHAWN CALVERT DO ~ RN was able to insert 60 MLS normal saline as a flash into the bladder however none returned. Bladder scanner resulted 1 mL retained urine. It is suspected there could be a clot or mass so pelvic ultrasound ordered. 1526: I'm notified by physics technician that the bladder does contain solid material, soft tissue versus clot. She is unable to differentiate, cystoscopy would be likely necessary if further evaluation was requested. The patient's hospice nurse came to the emergency department and after prolonged discussions it was determined that the patient and her daughter would like to have these medical issues further worked up and hospice status temporarily rescinded. The patient and her daughter understand that transfer to a facility with urology in the house will be necessary. They have requested transfer to [facility] and I have asked that the transfer team at [facility] be contacted. Impressions: Coumadin coagulopathy Questionable left sided pneumonia Hypokalemia Hypomagnesemia Gross hematuria with bladder outlet obstruction UTI The patient received Rocephin and Zithromax in the emergency department for the questionable pneumonia, Slow-Mag 64 as well as 30 mEq of potassium given by mouth. 1548: I discussed the patient with [facility] on-call transfer team physician Dr. Gan, she requests I give 10 of vitamin K and change out the Peters catheter. She accepts the patient for MedSurg admission. Departure Time of Disposition: 15:45 Disposition: 02 XFER T-[facility] Diagnosis: bladder outlet obstruction, Coumadin coagulopathy, Condition: STABLE Additional Instructions: EMS transfer to [facility] Dr Gan is accepting for medsurg admission. DESHAWN CALVERT DO Dec 13, 2017 11:07
[2017-12-13 11:28] LABS: BASO # 0.1 x10^3/uL (0.0-0.2); BASO % 1 % (0-3); EOS # 0.1 x10^3/uL (0.0-0.7); EOS % 1 % (0-3); HEMATOCRIT 32.8 % (36.0-47.0); HEMOGLOBIN 10.8 g/dL (12.0-15.5); LYMPH % 21 % (24-48); MEAN CORPUSCULAR HEMOGLOBIN 28 pg (25-35); MEAN CORPUSCULAR HGB CONC 33 g/dL (31-37); MEAN CORPUSCULAR VOLUME 85 fL (79-100); MONO # 1.9 x10^3/uL (0.0-1.1); MONO % 20 % (0-9); NEUT # 5.4 x10^3uL (1.8-7.7); NEUT % 57 % (31-73); PLATELET COUNT 636 x10^3/uL (140-400); RED BLOOD COUNT 3.85 x10^6/uL (3.50-5.40); RED CELL DISTRIBUTION WIDTH 21.6 % (11.5-14.5); WHITE BLOOD COUNT 9.5 x10^3/uL (4.0-11.0)
[2017-12-13] MEDS ORDERED: LORazepam 1 MG TABLET ONE (11:39)
[2017-12-13] MEDS ORDERED: cefTRIAXone IM 1 GM VIAL IM ONE (11:40)
[2017-12-13] MEDS ORDERED: AZITHROMYCIN 250 MG TABLET. PO ONE (11:40)
[2017-12-13 11:49] LABS: ALBUMIN/GLOBULIN RATIO 0.7 (1.0-1.7); ALK PHOS 102 U/L (46-116); ALT (SGPT) 11 U/L (14-59); ANION GAP 12 (6-14); AST (SGOT) 17 U/L (15-37); BLOOD UREA NITROGEN 11 mg/dL (7-20); BUN/CREATININE RATIO 16 (6-20); CALCIUM 8.5 mg/dL (8.5-10.1); CARBON DIOXIDE 21 mmol/L (21-32); CHLORIDE 106 mmol/L (98-107); CREATINE KINASE < 15 U/L (26-192); CREATININE 0.7 mg/dL (0.6-1.0); GFR 80.5; GLUCOSE 142 mg/dL (70-99); LIPASE 96 U/L (73-393); MAGNESIUM 1.3 mg/dL (1.8-2.4); POTASSIUM 3.3 mmol/L (3.5-5.1); SODIUM 139 mmol/L (136-145); TOTAL BILIRUBIN 0.6 mg/dL (0.2-1.0); TOTAL PROTEIN 4.9 g/dL (6.4-8.2)
[2017-12-13] MEDS ORDERED: MAGNESIUM CHLORIDE ER 64 MG TABLET.ER PO ONE (12:15)
[2017-12-13 12:22] LABS: BACTERIA,URINE MOD /HPF (0-FEW); BILIRUBIN,URINE NEG (NEG); CLARITY,URINE BLOODY; COLOR,URINE RED; GLUCOSE,URINE NEG (NEG); NITRITE,URINE NEG (NEG); RBC,URINE TNTC /HPF (0-2); SQUAMOUS EPITHELIAL CELL,UR OCC /LPF; UROBILINOGEN,URINE 1 mg/dL (0.2 mg/dL); WBC,URINE RARE /HPF (0-4)
[2017-12-13] MEDS ORDERED: POTASSIUM CHLORIDE 10 MEQ TABLET.ER. PO ONE (12:30)
[2017-12-13 13:06] LABS: ANISOCYTOSIS SLIGHT; HYPOCHROMIA PRESENT; MICROCYTOSIS PRESENT; PLT ESTIMATE ADEQUATE (ADEQUATE)
--- NOTE | 2017-12-13 13:59 | EKG ---
[address] [address] Test Date: 2017-12-13 Test Time: 11:03:13 Pat Name: NIKKY DE SOUZA Department: Room: Gender: F [place] Press Operator: [place] : 1935 Requested By: DESHAWN CALVERT Order Number: [id number] Reading MD: Marcial Myles Measurements Intervals [place] Rate: 72 P: [place]: QRS: -131 QRSD: 138 T: 64 QT: 438 QTc: 481 Interpretive Statements PROBABLE VENTRICULAR PACED RHYTHM Electronically Signed On 12-13-2017 16:49:40 IN [employer] by Marcial Myles
--- NOTE | 2017-12-13 15:30 | RAD ---
Pelvic ultrasound, 12/13/2017: History: Gross hematuria The urinary bladder was scanned as requested. The bladder is only partially distended measuring approximately 6 x 6.5 x 3.7 cm. It contains echogenic material, compatible with blood clot given the patient's history. The limited exam is otherwise unremarkable.
[2017-12-13] MEDS ORDERED: PHYTONADIONE 10 MG/ML AMPUL. SQ ONE ×2 (16:30→19:45)
[2017-12-13] MEDS ORDERED: TOTAL VOLUME IV PRN (19:30)
[2017-12-13] MEDS ORDERED: FUROSEMIDE IV PRN (19:30)
[2017-12-13] MEDS ORDERED: FUROSEMIDE 40 MG/4 ML VIAL IVP ONE (19:45)
[2017-12-13 20:03] VITALS: BP 114/86
== END 2017-12-13 20:23 | disposition short-term general hospital (02) ==
LOC: ER 09:51
DX: N32.0 Bladder-neck obstruction (principal); T83.83XA Hemorrhage due to genitourinary prosthetic devices, implants and grafts, initial encounter; R79.1 Abnormal coagulation profile; E87.6 Hypokalemia; E83.42 Hypomagnesemia; R31.0 Gross hematuria; N39.0 Urinary tract infection, site not specified; G89.29 Other chronic pain; I13.0 Hypertensive heart and chronic kidney disease with heart failure and stage 1 through stage 4 chronic kidney disease, or unspecified chronic kidney disease; N18.9 Chronic kidney disease, unspecified; I50.9 Heart failure, unspecified; E78.5 Hyperlipidemia, unspecified; M06.9 Rheumatoid arthritis, unspecified; I25.10 Atherosclerotic heart disease of native coronary artery without angina pectoris; Z95.0 Presence of cardiac pacemaker; Z95.5 Presence of coronary angioplasty implant and graft; Z79.01 Long term (current) use of anticoagulants; Z91.041 Radiographic dye allergy status
CPT/HCPCS: 36415; 74022; 76856; 80053; 81001; 82550; 83605; 83690; 83735; 83880; 84484; 85025; 85610; 85730; 87040; 87086; 87186; 93005; 96372; 99285; J0456; J0696